=== PATIENT | female | born 1995 | race Caucasian/White ===

== ENCOUNTER 2016-06-24 09:50 | Observation (INO) | payer MEDICAID | END 2016-06-24 12:00 | disposition home or self-care (01) | DRG 566 | LOC: LDRP 09:50 | PROVIDERS: ADMIT Specialist; ATTEND Specialist | DX: O62.9 Abnormality of forces of labor, unspecified (principal); Z3A.00 Weeks of gestation of pregnancy not specified | CPT/HCPCS: 59025; 81002; G0378 ==

== ENCOUNTER 2016-06-30 08:55 | Inpatient (IN) | payer MEDICAID ==
[2016-06-30] VITALS (10 sets, daily range): BP systolic 116–141; BP diastolic 66–84
[~2016-06-30] VITALS: Ht 160 cm; Wt 101.2 kg
[2016-06-30] MEDS: LACTATED RINGER'S 1,000 ML IV SCH ×2 (09:36→21:30)
[2016-06-30 09:59] LABS: Basophils # (auto) 0 uL; Basophils % (auto) 0.2 % (0.0-2.0); DEFINITIVE VIEW TRANSMISSION; Eosinophils # (auto) 0.1 uL; Eosinophils % (auto) 1.1 % (0.0-7.0); Hematocrit 31.1 % (36.0-46.0); Hemoglobin 9.8 g/dL (12.2-16.2); Lymphocytes # (auto) 1.8 uL; Lymphocytes % (auto) 29.4 % (10.0-50.0); Mean Corpuscular Hemoglobin 24.1 pg (28.0-32.0); Mean Corpuscular Hgb Conc. 31.6 g/dL (32.0-36.0); Mean Corpuscular Volume 76.1 fL (80.0-100.0); Mean Platelet Volume 9.1 fL (7.4-10.4); Monocytes # (auto) 0.4 uL; Neutrophils # (auto) 3.9 uL; Neutrophils % (auto) 63.3 % (37.0-80.0); Platelet Count (auto) 162 10^3/uL (140-450); White Blood Cell 6.2 10^3/uL (4.4-10.8)
[2016-06-30 10:15] LABS: INR 0.93 (0.9-1.15); Partial Thromboplastin Time 27.8 sec (22.64-33.71); Prothrombin Time 9.6 sec (9.37-12.3)
[2016-06-30 10:19] LABS: Urine Bilirubin Negative (Negative); Urine Blood Negative /uL (Negative); Urine Color Yellow (Yellow); Urine Glucose Normal (Normal); Urine Ketone Negative (Negative); Urine Mucus FEW (None Seen); Urine Nitrite Negative (Negative); Urine RBC 55 /hpf (0 - 4); Urine Squamous Epithelial Cell FEW /hpf (<5); Urine pH 6.5 (5.0-8.0)
[2016-06-30 10:37] LABS: Albumin 2.4 g/dL (3.4-5.0); BUN/Creatinine Ratio 10.9; Bilirubin, Total 0.3 mg/dL (0.2-1.0); Calcium 8.4 mg/dL (8.5-10.1); Potassium 3.9 mmol/L (3.5-5.1); Total Protein 6.5 g/dL (6.4-8.2)
[2016-06-30] MEDS ORDERED: MIDAZOLAM HCL 1MG/1ML-2 ML VIAL ONE (12:41)
[2016-06-30] MEDS ORDERED: MORPHINE SULF(PF) 0.5MG/ML 10ML VIAL ONE (12:41)
[2016-06-30] MEDS ORDERED: fentaNYL CITRATE 100 MCG/2 ML VL ONE (12:41)
[2016-06-30] MEDS ORDERED: SODIUM CHLORIDE LOCK 20 ML ONE ×2 (12:43→13:38)
[2016-06-30] MEDS ORDERED: ePHEDrine SULFATE 50 MG/ML AMP ONE ×2 (12:43→13:38)
[2016-06-30] MEDS ORDERED: ceFAZolin 1GM VL ONE (12:43)
[2016-06-30] MEDS ORDERED: OXYTOCIN 10 UNIT/ML 10ML VIAL ONE (12:43)
[2016-06-30] MEDS ORDERED: TETRACAINE 1% INJ 2 ML VIAL IJ ONE (13:29)
[2016-06-30] MEDS ORDERED: MORPHINE SULF INJ 2 MG/ML SYRINGE 1ML IV PRN (14:45)
[2016-06-30] MEDS ORDERED: ONDANSETRON HCL 4 MG/2 ML VIAL IV PRN (14:45)
[2016-06-30] MEDS ORDERED: HYDROmorphone HCL 2 MG/ML VL IV PRN ×2 (14:45→15:30)
[2016-06-30] MEDS ORDERED: LACT. RINGERS/OXYTOCIN 20UNITS 1,000 ML IV SCH (14:45)
[2016-06-30] MEDS ORDERED: OXYTOCIN 10UNIT/ML 1ML VIAL ONE (15:12)
[2016-06-30] MEDS ORDERED: KETOROLAC TROMETH 30 MG/ML 1ML VIAL IV ONE (15:30)
[2016-06-30] MEDS ORDERED: PROMETHAZINE HCL 25 MG/ML 1ML IM ONE (15:30)
[2016-06-30] MEDS ORDERED: NALOXONE HCL 0.4 MG/ML VIAL IV PRN (15:30)
[2016-06-30] MEDS ORDERED: diphenhdrAMINE HCL 50 MG/1 ML VL IV PRN (15:30)
[2016-06-30] MEDS: KETOROLAC TROMETH 30 MG/ML 1ML VIAL IV PRN (17:24)
[2016-06-30] MEDS ORDERED: PREN-96 PO (17:37)
[2016-06-30 21:18] LABS: Basophils # (auto) 0 uL; Basophils % (auto) 0.2 % (0.0-2.0); DEFINITIVE VIEW TRANSMISSION; Eosinophils # (auto) 0 uL; Eosinophils % (auto) 0.3 % (0.0-7.0); Hematocrit 33.6 % (36.0-46.0); Hemoglobin 10.4 g/dL (12.2-16.2); Lymphocytes # (auto) 1.8 uL; Lymphocytes % (auto) 19.3 % (10.0-50.0); Mean Corpuscular Volume 77.3 fL (80.0-100.0); Mean Platelet Volume 9.3 fL (7.4-10.4); Monocytes # (auto) 0.5 uL; Monocytes % (auto) 5.5 % (0.0-12.0); Neutrophils # (auto) 7.1 uL; Neutrophils % (auto) 74.7 % (37.0-80.0); Platelet Count (auto) 139 10^3/uL (140-450); White Blood Cell 9.6 10^3/uL (4.4-10.8)
[2016-06-30] MEDS: ceFAZolin 1GM/50ML D5W 50 ML IV SCH (21:35)
[2016-06-30 21:36] LABS: Anisocytosis Slight; Hypochromia Moderate; Microcytosis Slight; Platelet Estimate Decreased
[2016-07-01] VITALS (9 sets, daily range): BP systolic 99–139; BP diastolic 57–80
[2016-07-01] MEDS ORDERED: DEXTROSE 10% 250 ML IV ONE (01:44)
[2016-07-01] MEDS ORDERED: SODIUM CHLORIDE LOCK 10 ML ONE (01:44)
[2016-07-01] MEDS: KETOROLAC TROMETH 30 MG/ML 1ML VIAL IV PRN (05:30)
[2016-07-01] MEDS: LACTATED RINGER'S 1,000 ML IV SCH ×3 (05:30→16:34)
[2016-07-01] MEDS: ceFAZolin 1GM/50ML D5W 50 ML IV SCH ×2 (05:30→13:18)
[2016-07-01 06:30] LABS: Basophils # (auto) 0 uL; Basophils % (auto) 0.2 % (0.0-2.0); DEFINITIVE VIEW TRANSMISSION; Eosinophils # (auto) 0.1 uL; Hemoglobin 10.2 g/dL (12.2-16.2); Lymphocytes # (auto) 1.6 uL; Lymphocytes % (auto) 25.8 % (10.0-50.0); Mean Corpuscular Volume 77.4 fL (80.0-100.0); Mean Platelet Volume 9.7 fL (7.4-10.4); Monocytes # (auto) 0.3 uL; Monocytes % (auto) 5.5 % (0.0-12.0); Neutrophils # (auto) 4.1 uL; Neutrophils % (auto) 67.5 % (37.0-80.0); Platelet Count (auto) 137 10^3/uL (140-450); Red Cell Distribution Width 18.7 % (11.6-16.0); White Blood Cell 6.1 10^3/uL (4.4-10.8)
[2016-07-01] MEDS ORDERED: SIMETHICONE 80 MG CHEWABLE TABLET PO PRN (08:00)
[2016-07-01] MEDS ORDERED: HYDROcodone-ACET 5/325MG TAB PO PRN (09:45)
[2016-07-01] MEDS: DOCUSATE SOD 100 MG CAP PO SCH ×2 (09:50→21:37)
[2016-07-01] MEDS: HYDROcodone-ACET 5/325MG TAB PO PRN ×3 (09:51→19:24)
[2016-07-01] MEDS: IBUPROFEN 800 MG TAB PO PRN (20:44)
[2016-07-02] MEDS: HYDROcodone-ACET 5/325MG TAB PO PRN ×2 (01:01→18:32)
[2016-07-02] MEDS: LACTATED RINGER'S 1,000 ML IV SCH (01:19)
[2016-07-02 03:18] VITALS: BP 120/73
[2016-07-02] MEDS: IBUPROFEN 800 MG TAB PO PRN ×3 (05:10→23:23)
[2016-07-02 06:55] VITALS: BP 110/65
[2016-07-02] MEDS: DOCUSATE SOD 100 MG CAP PO SCH ×2 (10:56→21:34)
[2016-07-02] MEDS ORDERED: TETANUS-DIPTH-ACEL PERTUSSIS 0.5ML SYRG IM ONE (11:30)
[2016-07-02 11:56] VITALS: BP 140/85
[2016-07-02 16:30] VITALS: BP 120/67
[2016-07-02 18:54] VITALS: BP 141/63
[2016-07-02 23:15] VITALS: BP 127/71
[2016-07-03] MEDS: LACTATED RINGER'S 1,000 ML IV SCH (01:19)
[2016-07-03 03:45] VITALS: BP 128/71
[2016-07-03] MEDS: HYDROcodone-ACET 5/325MG TAB PO PRN ×2 (04:00→08:11)
[2016-07-03] MEDS: IBUPROFEN 800 MG TAB PO PRN (07:27)
[2016-07-03 08:00] VITALS: BP 110/62
[2016-07-03] MEDS: DOCUSATE SOD 100 MG CAP PO SCH (08:10)
[2016-07-03 12:00] VITALS: BP 110/63
== END 2016-07-03 12:10 | disposition home or self-care (01) | DRG 540 ==
LOC: LDRP 08:55
PROVIDERS: ADMIT Obstetrics & Gynecology; ATTEND Obstetrics & Gynecology
PROC: 30233N1 Transfusion of Nonautologous Red Blood Cells into Peripheral Vein, Percutaneous Approach (ICD-10-PCS; 2016-06-30)
PROC: 10D00Z1 Extraction of Products of Conception, Low, Open Approach (ICD-10-PCS; principal; 2016-06-30 13:58)
DX: O34.211 Maternal care for low transverse scar from previous cesarean delivery (principal); E66.01 Morbid (severe) obesity due to excess calories; F32.9 Major depressive disorder, single episode, unspecified; O99.344 Other mental disorders complicating childbirth; O99.214 Obesity complicating childbirth; Z68.39 Body mass index [BMI] 39.0-39.9, adult; Z37.0 Single live birth; Z3A.39 39 weeks gestation of pregnancy; Z23 Encounter for immunization
CPT/HCPCS: 36415; 59025; 80053; 81001; 85025; 85610; 85730; 86592; 86850; 86900; 86901; 86920; 88307; 90715; 94760; 96365; J0690; J1885; J2250; J2590